=== PATIENT | male | born 1970 | race Caucasian/White ===

== ENCOUNTER 2019-02-07 15:52 | Emergency (ER) | payer OTHER ==
[~2019-02-07] VITALS: Ht 177.8 cm; Wt 83.9 kg
[2019-02-07 17:18] VITALS: BP 146/66
[2019-02-07] MEDS ORDERED: LIDOCAINE 1%/EPI 1:100,000 20 ML VIAL. SQ ONE (18:15)
[2019-02-07] MEDS ORDERED: NEOMY/BACITR/POLYMYXIN OINT PACKET. TP ONE (18:15)
--- NOTE | 2019-02-07 18:39 | RAD ---
Exam: CT orbits without contrast INDICATION: Hit in right side of face TECHNIQUE: Sequential axial images through the orbits obtained without IV contrast. Sagittal and coronal reformatted images were reconstructed from the axial data and reviewed. Comparisons: None FINDINGS: Visualized intracranial structures are unremarkable. There is extracranial soft tissue contusion overlying the right superior orbital ridge. Small amount of air is noted within the soft tissues just lateral to the right globe. The globes and intraorbital contents are normal. Mucosal thickening within the maxillary sinuses bilaterally. IMPRESSION: 1. Soft tissue contusion overlying the right superior orbital ridge and likely laceration along the soft tissues lateral to the right globe. 2. Globes and intraorbital contents are normal. 3. No acute fractures identified. 4. Sinus disease as described above. Exposure: One or more of the following in the visualized dose reduction techniques were utilized for this examination: 1. Automated exposure control 2. Adjustment of the MA and/or KV according to patient size 3. Use of iterative of reconstructive technique Electronically signed by: Juan Luis Marin MD (02/07/2019 6:36 PM) [id number]
[2019-02-07] MEDS ORDERED: MUPI22OI2 TP (19:40)
--- NOTE | 2019-02-07 19:40 | PHYS DOC ---
Past Medical History Past Medical History: No Pertinent History (FUNMI MELO APRN) Past Surgical History: No Surgical History (FUNMI MELO APRN) Alcohol Use: Occasionally Drug Use: None (FUNMI MELO APRN) Adult General Chief Complaint Chief Complaint: HEAD INJURY/TRAUMA [facility] HPI Patient is a 48 year old male, accompanied by his , who presents to the emergency department with complaints of a laceration to his right amish and lateral right thigh pain after being accidentally struck in the side of his face with a handle to his Maciej. Patient states that he was using the Maciej when he let go of it and the handle hit him in the face. He denies any loss of consciousness, nausea, vomiting, dizziness, or vision changes since the injury. He currently denies any pain. Patient states that his last tetanus shot was less than 5 years ago. All other ROS is neg unless otherwise noted in HPI. (FUNMI MELO APRN) Review of Systems Review of Systems See Above (FUNMI MELO APRN) Current Medications Current Medications Current Medications Medications (Trade) Dose Ordered Sig/Marisol Start Time Stop Time Status Last Admin Dose Admin Lidocaine/ Epinephrine (LIDOCAINE 1%-EPI 1:100,000 Multi-Dose) 20 ml 1X ONCE 02/07/19 18:15 02/07/19 18:17 DC 02/07/19 18:30 20 ML Neomycin/ Polymyxin/ Bacitracin (Triple Antibiotic Ointment) 1 pkt 1X ONCE 02/07/19 18:15 02/07/19 18:17 DC 02/07/19 18:29 1 PKT (ANETA VYAS DO) Allergies Allergies Allergies Coded Allergies Type Severity Reaction Last Updated Verified No Known Drug Allergies 02/07/19 No (ANETA VYAS DO) Physical Exam Physical Exam See Above Constitutional: Well developed, well nourished, no acute distress, non-toxic appearance. [] HENT: Normocephalic, atraumatic, bilateral external ears normal, bilateral TMs normal, oropharynx moist, no oral exudates, nose normal. [] Eyes: PERRLA, EOMI, conjunctiva normal, no discharge; right lateral orbit tenderness to palpation, no crepitus, no deformity [] Neck: Normal range of motion, no tenderness, no stridor. [] Cardiovascular:Heart rate regular rhythm Lungs & Thorax: Respirations even and unlabored, no retractions, no respiratory distress Skin: Warm, dry, no erythema, no rash; 3 cm laceration noted to right amish, no active bleeding. [] Extremities: No cyanosis, ROM intact, no edema. [] Neurologic: Alert and oriented X 3, no focal deficits noted. [] Psychologic: Affect normal, judgement normal, mood normal. [] (FUNMI MELO APRN) Current Patient Data Vital Signs Vital Signs Date Time Temp Pulse Resp B/P (MAP) Pulse Ox O2 Delivery O2 Flow Rate FiO2 02/07/19 17:18 98.2 67 146/66 (92) 98 Room Air 98.2 (VYASANETA DO) EKG EKG [] (FUNMI MELO APRN) Radiology/Procedures Radiology/Procedures Laceration Repair by me: Anesthesia: 1% lidocaine with epi locally Location: Right amish Tendon/Joint/Nerves: No injury Foreign body: None detected after copious irrigation and exploration Technique: 8 Simple Interrupted Sutures with 6-0 Ethilon Complexity: No subcutaneous sutures/mucosal repair/edge excision Post Closure Length: 3 cm Patient's bleeding was easily controlled in the department and there is no indication of anemia. No evidence of compartment syndrome, neurologic injury, vascular injury, open joint, tendon laceration, or foreign body. Patient is appropriate for outpatient follow up. Scar minimization instructions given.[] (FUNMI MELO APRN) Course & Med Decision Making Course & Med Decision Making Pertinent Labs and Imaging studies reviewed. (See chart for details) [] (FUNMI MELO APRN) Dragon Disclaimer Dragon Disclaimer This electronic medical record was generated, in whole or in part, using a voice recognition dictation system. (FUNMI MELO APRN) Departure Departure Impression: Primary Impression: Laceration of face without complication Disposition: 01 HOME, SELF-CARE Condition: STABLE Referrals: GOOD GOVEA MD (PCP) Patient Instructions: Facial Laceration, [id number] Additional Instructions: Fill prescription and use as directed. Keep the area clean and dry. You may take Tylenol or ibuprofen as needed for pain. Keep the dressing that was placed today on for 24 hours then change the dressing twice a day and apply antibiotic ointment to the area. Follow-up with your primary care doctor, or return to the emergency room in 5 days to have the sutures removed, sooner if you develop signs of infection including: redness, warmth, drainage, or a fever. Scripts Mupirocin (MUPIROCIN OINTMENT) 22 Gm Oint...g. 1 INGRID TP TID for WOUND CARE, #1 TUBE 0 Refills Prov: FUNMI MELO COSMETIC MAKER 02/07/19 Attending Signature Attending Signature I have reviewed the PA/COLLAR SEPARATOR's note and plan of care. I was available for consultation as needed during the patient's visit in the emergency department. I agree with the clinical impression, plan, and disposition. (ANETA VYAS DO) Problem Qualifiers Primary Impression: Laceration of face without complication Encounter type: initial encounter Qualified Codes: S01.81XA - Laceration without foreign body of other part of head, initial encounter FUNMI MELO APRN Feb 07, 2019 19:40 ANETA VYAS DO Feb 11, 2019 10:56
== END 2019-02-07 19:48 | disposition home or self-care (01) ==
LOC: ER 15:52
DX: S01.81XA Laceration without foreign body of other part of head, initial encounter (principal); M79.651 Pain in right thigh; W22.8XXA Striking against or struck by other objects, initial encounter; Y93.89 Activity, other specified; Y92.89 Other specified places as the place of occurrence of the external cause; Y99.8 Other external cause status
CPT/HCPCS: 12013; 70480; 99284; J3490